=== PATIENT | female | born 1975 | race Caucasian/White ===

== ENCOUNTER → 2018-10-17 | Outpatient (REF) | payer OTHER ==
[2018-10-17 18:45] LABS: APPEARANCE, URINE CLEAR (CLEAR); BACTERIA, URINE AUTO NEGATIVE (NEGATIVE); BILIRUBIN, URINE AUTO NEGATIVE (NEGATIVE); BLOOD, URINE BLOOD NEGATIVE (NEGATIVE); COLOR, URINE STRAW (YELLOW); GLUCOSE, URINE (UA) AUTO NEGATIVE (NEGATIVE); KETONE, URINE AUTO NEGATIVE (NEGATIVE); LEUKOCYTE ESTERASE, URINE AUTO NEGATIVE (NEGATIVE); NITRITE, URINE AUTO NEGATIVE (NEGATIVE); PROTEIN, URINE AUTO NEGATIVE (NEGATIVE); RBC, URINE AUTO 0 /HPF (0-3); SPECIFIC GRAVITY URINE AUTO 1.002 (1.002-1.035); SQUAMOUS EPITHELIAL CELL UR AU 1 /HPF (0-6); UROBILINOGEN, URINE AUTO 0.2 mg/dL (0.0-2.0); WBC, URINE AUTO 0 /HPF (0-3)
== END ==
LOC: M SMT 17:05
PROVIDERS: ATTEND Nurse Practitioner Women's Health
DX: R10.2 Pelvic and perineal pain (principal)

== ENCOUNTER → 2021-05-11 | Outpatient (REF) ==
[~2021-05-11] MED LIST: B-12100010 PO; BIOT10009 PO; CALC600T36 PO; CLON0.5T2 PO; COLOCAP PO; LEVOTAB10 PO; MAGN400C2 PO; MONT10TA10 PO; OYST1TAB PO; PREN1CHW6 PO; PREN29TA4 PO; PROBCAP14 PO; QUET300T2 PO; QUET400T2 PO; REME15TA2 PO; SM M250T2 PO; VENL75TA2 PO; VITA-243 PO; ZOLP5TAB PO
--- NOTE | 2021-05-11 11:18 | REP ---
INDICATION: ARTHRITIS/PAIN COMPARISON: None. TECHNIQUE: AP, lateral, bilateral oblique and sunrise views. FINDINGS: Mild tricompartmental osteoarthritic degenerative changes are appreciated. Findings include mildly increased sclerosis to the tibial plateau along with marginal cortical irregularity at the femoral condyles and subtle early osteophyte formation involving distal femur, patella, and tibia. No acute fracture or dislocation. No effusion. IMPRESSION: Mild tricompartmental osteoarthritic degenerative changes. <Electronically signed by Fernie Resendiz > 05/11/21 [id number]
--- NOTE | 2021-05-11 11:19 | REP ---
INDICATION: ARTHRITIS/PAIN COMPARISON: None. TECHNIQUE: AP, lateral, bilateral oblique views left hand. FINDINGS: Mild arthritic changes are appreciated primarily involving the 1st metacarpophalangeal joint and 5th distal interphalangeal joint. Findings include subchondral sclerosis with minimal joint space narrowing and subtle marginal spurring. Remainder of the examination demonstrates age-related changes. No evidence for acute fracture or dislocation. IMPRESSION: Mild degenerative changes. <Electronically signed by Fernie Resendiz > 05/11/21 [id number]
== END ==
LOC: M PLAIMG 10:12
PROVIDERS: ATTEND Internal Medicine
DX: M25.542 Pain in joints of left hand (principal); M25.561 Pain in right knee

== ENCOUNTER → 2022-05-29 | Outpatient (REF) | payer MEDICARE ==
[~2022-05-29] MED LIST changes: -MONT10TA10 PO; +MONT10TA97 PO
[2022-05-29 19:16] LABS: MAGNESIUM LEVEL 2.3 MG/DL (1.8-2.4)
[2022-05-29 19:17] LABS: PHOSPHORUS LEVEL 4.8 MG/DL (2.5-4.9)
[2022-05-29 19:18] LABS: C REACTIVE PROTEIN QUANTITATIV 1.4 MG/DL (<1.0)
[2022-05-29 19:20] LABS: TOTAL 25(OH) VITAMIN D 25.4 NG/ML (20.0-100.0)
== END ==
LOC: M SFHCRHEU 15:22
PROVIDERS: ATTEND Internal Medicine
DX: M25.50 Pain in unspecified joint (principal); M79.10 Myalgia, unspecified site; Z79.899 Other long term (current) drug therapy